=== PATIENT | male | born 1995 | race Two or more races ===

== ENCOUNTER 2020-06-02 16:52 | Emergency (ER) | payer SELFPAY ==
[2020-06-02] MEDS ORDERED: DEXAMETHASONE SOD PHOS INJ 10 MG/1 ML VIAL IV ONE (17:29)
--- NOTE | 2020-06-02 17:30 | ER Document Report ---
ED Medical Screen (RME) - General Chief Complaint: Neck Pain >24hrs old Stated Complaint: NECK PAIN Time Seen by Provider: 06/02/20 17:21 Mode of Arrival: Ambulatory Information source: Patient Notes: HPI; 25-year-old male presents emergency room complaining of feeling like there is something stuck in his throat. Patient states he thought he might have a throat infection so he took an ampicillin that he got from a [place] pharmacy without relief. Patient was having the feeling of something stuck in his throat or swelling prior to taking the ampicillin. States that swallowing without d ifficulty. Is talking in full sentences. No fevers, no nausea, no vomiting. PE: Alert and oriented x3. Lungs: Clear to auscultation without rales, rhonchi, wheezes. Heart: Regular rate rhythm without murmurs, rubs, gallops. There is tenderness and swelling noted to the anterior neck with anterior cervical lymphadenopathy noted. I have greeted and performed a rapid initial assessment of this patient. A comprehensive ED assessment and evaluation of the patient, analysis of test results and completion of the medical decision making process will be conducted by additional ED providers. I have specifically instructed the patient or family members with the patient to immediately return to any nursing staff should anything change in the patient's condition or with their chief complaint. TRAVEL OUTSIDE OF THE [place] IN LAST 30 DAYS: No - Related Data Allergies/Adverse Reactions: No Known Allergies Allergy (Verified 05/10/15 23:19) Past Medical History - Immunizations Hx Diphtheria, Pertussis, Tetanus Vaccination: Yes Physical Exam - Vital signs Vitals: Temp Pulse Resp BP Pulse Ox 98.1 F 78 16 131/81 H 97 06/02/20 17:12 06/02/20 17:12 06/02/20 17:12 06/02/20 17:12 06/02/20 17:12 Course - Vital Signs Vital signs: Temp Pulse Resp BP Pulse Ox 98.1 F 78 16 131/81 H 97 06/02/20 17:12 06/02/20 17:12 06/02/20 17:12 06/02/20 17:12 06/02/20 17:12
[2020-06-02 18:03] LABS: ABSOLUTE BASOPHILS # (AUTO) 0.1 10^3/uL (0.0-0.2); ABSOLUTE EOSINOPHILS # (AUTO) 0.2 10^3/uL (0.0-0.6); ABSOLUTE LYMPHOCYTES (AUTO) 3.6 10^3/uL (0.5-4.7); ABSOLUTE MONOCYTES (AUTO) 0.6 10^3/uL (0.1-1.4); BASOPHILS % (AUTO) 0.6 % (0-2); HEMATOCRIT 40.7 % (37.9-51.0); LYMPHOCYTES % (AUTO) 42.5 % (13-45); MEAN CORPUSCULAR HEMOGLOBIN 27.4 pg (27.0-33.4); MEAN CORPUSCULAR HGB CONC 34.5 g/dL (32.0-36.0); MEAN CORPUSCULAR VOLUME 79 fl (80-97); PLATELET COUNT 262 10^3/uL (150-450); RED BLOOD COUNT 5.12 10^6/uL (4.35-5.55); RED CELL DISTRIBUTION WIDTH 14.9 % (11.5-14.0); SEGMENTED NEUTROPHILS % (AUTO) 47.9 % (42-78); TOTAL CELLS COUNTED % (AUTO) 100 %; WHITE BLOOD COUNT 8.4 10^3/uL (4.0-10.5)
[2020-06-02 18:23] LABS: ALKALINE PHOSPHATASE 125 U/L (38-126); ANION GAP 10 (5-19); ASPARTATE AMINO TRANSFERASE 27 U/L (17-59); BILIRUBIN,DIRECT 0.2 mg/dL (0.0-0.4); BILIRUBIN,TOTAL 0.3 mg/dL (0.2-1.3); BLOOD UREA NITROGEN 14 mg/dL (7-20); CALCIUM 9.8 mg/dL (8.4-10.2); CARBON DIOXIDE 26 mmol/L (22-30); CHLORIDE 104 mmol/L (98-107); GLUCOSE 117 mg/dL (75-110); POTASSIUM 3.8 mmol/L (3.6-5.0)
--- NOTE | 2020-06-02 19:01 | RADIOLOGY REPORT (SQ) ---
EXAM DESCRIPTION: CT SOFT TISSUE NECK WITH IMAGES COMPLETED DATE/TIME: 06/02/2020 5:40 pm REASON FOR STUDY: dysphagia COMPARISON: None. TECHNIQUE: Post IV contrasted scanning from skull base through lung apices with review of bone, soft tissue and lung windows. Reconstructed coronal and sagittal MPR images reviewed. All images stored on PACS. All CT scanners at this facility use dose modulation, iterative reconstruction, and/or weight based d osing when appropriate to reduce radiation dose to as low as reasonably achievable (ALARA). [facility]: Dose Right [facility]: CareDose [facility]: Dose Right [facility]: Teradose 4D [facility]: Case Rover CONTRAST TYPE AND DOSE: contrast/concentration: Isovue 350.00 mmol/ml; Total Contrast Delivered: 75. 0 ml; Total Saline Delivered: 55.0 ml RENAL FUNCTION: None required. The patient is less than 50 years old. RADIATION DOSE: CT Rad equipment meets quality standard of care and radiation dose reduction techniq ues were employed. CTDIvol: 17.5 mGy. DLP: 510 mGy-cm. . LIMITATIONS: None. FINDINGS: SKULL BASE: Intact. MAJOR SALIVARY GLANDS: No solid or cystic masses. No inflammatory changes. LYMPHADENOPATHY: No adenopathy. MUCOSAL MASSES OR ASYMMETRY: No mucosal masses or asymmetry. LARYNX/CORDS: No abnormal findings. VASCULAR STRUCTURES: The major vessels are patent. LUNG APICES: Clear. BONES: Intact. THYROID: Normal size. No masses. PARANASAL SINUSES: Clear. OTHER: No other significant finding. IMPRESSION: NO SIGNIFICANT FINDING IN THE SOFT TISSUES OF THE NECK. TECHNICAL DOCUMENTATION: JOB ID: [id number] Quality ID # [id number]: Final reports with documentation of one or more dose reduction techniques (e.g., Au tomated exposure control, adjustment of the mA and/or kV according to patient size, use of iterative reconstruction technique) 2010 [employer]- All Rights Reserved Reading location - IP/workstation name: [email or web address]
[2020-06-03] MEDS ORDERED: DEXAMETHASONE SOD PHOS INJ 10 MG/1 ML VIAL IV ONE (02:34)
--- NOTE | 2020-06-03 02:40 | ER Document Report ---
ED General - General Chief Complaint: Neck Problem Stated Complaint: NECK PAIN Time Seen by Provider: 06/02/20 17:21 Mode of Arrival: Ambulatory Notes: Patient is a 25-year-old male that comes emergency department for chief complaint of sensation of something being stuck in his throat, he states he feels pain on the left side of his throat and his neck and he also occasionally has pain and a discomfort sensation at the top of his throat when he is swallowing. He states that when he was lying flat earlier and felt like he was having increased discomfort and he felt like he was having difficulty breathing because of it. Patient states symptoms in his upper chest and lower throat also are worse at times after eating. Patient denies injury, he states he has felt symptoms from this intermittently for about 2 weeks now. He denies fever, current sore throat, chest pain, headache, vomiting, or any other complaints. He denies any daily medications or past medical history except for pituitary tumor for which he is following with a specialist in [place]. TRAVEL OUTSIDE OF THE [place] IN LAST 30 DAYS: No - Related Data Allergies/Adverse Reactions: No Known Allergies Allergy (Verified 05/10/15 23:19) Past Medical History - General Information source: Patient - Social History Smoking Status: Never Smoker Frequency of alcohol use: None Drug Abuse: None Lives with: Family Family History: Reviewed & Not Pertinent Surgical Hx: Negative - Immunizations Hx Diphtheria, Pertussis, Tetanus Vaccination: Yes Review of Systems - Review of Systems Constitutional: No symptoms reported EENT: See HPI Cardiovascular: See HPI Respiratory: No symptoms reported Gastrointestinal: See HPI Genitourinary: No symptoms reported Male Genitourinary: No symptoms reported Musculoskeletal: No symptoms reported Skin: No symptoms reported Hematologic/Lymphatic: No symptoms reported Neurological/Psychological: No symptoms reported Physical Exam - Vital signs Vitals: Temp Pulse Resp BP Pulse Ox 98.1 F 78 16 131/81 H 97 06/02/20 17:12 06/02/20 17:12 06/02/20 17:12 06/02/20 17:12 06/02/20 17:12 - Notes Notes: GENERAL: Alert, interacts well. No acute distress. HEAD: Normocephalic, atraumatic. EYES: Pupils equal, round, and reactive to light. Extraocular movements intact. ENT: Oral mucosa moist, tongue midline. Oropharynx unremarkable. Airway patent. Nares patent, sinuses non-tender, ear canals unremarkable, TM's intact. NECK: Full range of motion. Supple. Trachea midline. There is 1 small lymph node that is mildly tender in the left upper neck/lower submandibular area, otherwise unremarkable neck. No nuchal rigidity. LUNGS: Clear to auscultation bilaterally, no wheezes, rales, or rhonchi. No respiratory distress. Non-tender chest wall. HEART: Regular rate and rhythm. No murmur ABDOMEN: Soft, non-tender. Non-distended. EXTREMITIES: Moves all 4 extremities spontaneously. No edema, normal radial and dorsalis pedis pulses bilaterally. No cyanosis. BACK: no cervical, thoracic, lumbar midline tenderness. No saddle anesthesia, normal distal neurovascular exam. Moves all extremities in full range of motion. NEUROLOGICAL: Alert and oriented x3. Normal speech. Cranial nerves II through XII grossly intact. Strength 5/5 in all extremities. PSYCH: Normal affect, normal mood. SKIN: Warm, dry, normal turgor. No rashes or lesions noted. Course - Re-evaluation Re-evalutation: CBC, chemistry unremarkable. I did review CAT scan of the neck/throat, this was completely unremarkable. On exam patient appears to have 1 very small tender lymph node on the left side in the area close to submandibular area. There is no submandibular swelling well, no significant tenderness, unremarkable oropharyngeal exam otherwise, unremarkable neck exam otherwise. Vital signs unremarkable. In addition patient states symptoms are worse when lying down, intermittently feels like it is uncomfortable swallowing, he states sometimes he has symptoms that are worse with food as well. Based on this I suspect there may be a reflux component. Patient treated with dexamethasone here, placed on medications for suspected reflux, patient with no complaints on my evaluation, he is alert and well-appearing, vital signs unremarkable, low suspicion of emergent abnormality of the chest or throat. Discussed details of work-up, follow-up, return precautions in detail. This was performed using [place] interpretation system for [place]. Patient states appreciation and agreement. - Vital Signs Vital signs: Temp Pulse Resp BP Pulse Ox 98.6 F 85 16 135/82 H 97 06/03/20 02:55 06/03/20 02:55 06/03/20 02:55 06/03/20 02:55 06/03/20 02:55 - Laboratory Result Diagrams: 06/02/20 17:42 06/02/20 17:42 Laboratory results interpreted by me: 06/02/20 06/02/20 17:42 17:42 MCV 79 L RDW 14.9 H Glucose 117 H Discharge - Discharge Clinical Impression: Neck pain Dysphagia Qualifiers: Dysphagia type: unspecified Qualified Code(s): R13.10 - Dysphagia, unspecified Condition: Stable Disposition: HOME, SELF-CARE Additional Instructions: Your tests and scan do not show any concerning findings. Your exam appears to show a small lymph node which is tender which should go away with the medicine you were given here today. This can take a few days. In addition to this I think you have inflammation in your esophagus (the upper part of your gastrointestinal tract), I recommend that you take the Carafate and Pepcid for the next few days. I recommend that you avoid smoking, alcohol, spicy food, NSAIDs such as ibuprofen while you are taking these medications. Follow-up with primary care for additional management. Come back if you are worse including severe pain, if you cannot swallow, fever, or any other concerning or worsening symptoms. Las pruebas y la exploracin no muestran ningn hallazgo preocupante. [place] examen parece mostrar un pequeo ganglio linftico que es sensible que debe desaparecer con el medicamento que se le helene aqu hoy. [place] puede tardar unos justin. Adems de esto creo que tienes inflamacin en el esfago (la parte superior de tu tracto gastrointestinal), te recomiendo que tomes el Carafate y Pepcid yon los prximos justin. Le recomiendo que evite fumar, alcohol, alimentos picantes, RADHA ruslan el ibuprofeno mientras est tomando estos medicamentos. Seguimiento con atencin primaria para la gestin adicional. Regrese si est peor, incluyendo dolor intenso, si no puede tragar, fiebre o cualquier otro sntoma relacionado o empeoramiento. Prescriptions: Sucralfate [Carafate 1 gm Tablet] 1 gm PO QID #20 tablet Famotidine [Pepcid 20 mg Tablet] 20 mg PO BID #20 tablet
[2020-06-03 02:59] VITALS: BP 135/82
== END 2020-06-03 03:00 | disposition home or self-care (01) ==
LOC: EDSEX → ER 16:52
DX: M54.2 Cervicalgia (principal); R13.10 Dysphagia, unspecified; Z88.0 Allergy status to penicillin
CPT/HCPCS: 99285; 96374; 96375; 36415; 85025; 80053; 70491; J1100 ×2